=== PATIENT | female | born 1945 | race Caucasian/White ===

== ENCOUNTER 2019-12-02 08:44 | Outpatient (CLI) | payer MEDICARE, OTHER, SELFPAY ==
[2019-12-02 09:02] VITALS: BMI 27.4
[2019-12-02 09:07] VITALS: BP 139/93; PULSE 91; RESP 18; TEMP 35.6; O2SAT 96
--- NOTE | 2019-12-02 10:01 | SUR.OPER ---
PER PHARMACY DID NOT HAVE RECOMMENDED DOSE. EXPLAINED TO PATIENT SHE COULD LEAVE AND COME BACK, PATIENT CHOSE TO LEAVE AND COM BACK TOMORROW.
== END 2019-12-02 08:45 | disposition home or self-care (01) ==
LOC: GILAB 08:47
PROVIDERS: Family Provider Family Medicine; PCP Family Medicine; Visit Provider Student in an Organized Health Care Education/Training Program
DX: H20.13 Chronic iridocyclitis, bilateral (principal)
CPT/HCPCS: A4222; J1745; J7050

== ENCOUNTER 2019-12-03 09:49 | Outpatient (CLI) | payer MEDICARE, OTHER, SELFPAY ==
[2019-12-03 10:04] VITALS: BP 128/76; PULSE 79; RESP 18; TEMP 36.4; O2SAT 95
== END 2019-12-03 09:50 | disposition home or self-care (01) ==
PROVIDERS: Family Provider Family Medicine; PCP Family Medicine; Visit Provider Student in an Organized Health Care Education/Training Program
DX: H20.13 Chronic iridocyclitis, bilateral (principal)
CPT/HCPCS: 96365; 96366; A4222; J1745; J7050

== ENCOUNTER → 2019-12-27 07:50 | Outpatient (BNVA) | payer MEDICARE, OTHER, SELFPAY | PROVIDERS: Family Provider Family Medicine; PCP Family Medicine; Visit Provider Nurse Practitioner | DX: F41.1 Generalized anxiety disorder (principal) | CPT/HCPCS: 99213 ==

== ENCOUNTER → 2019-12-30 08:57 | Day surgery (SDC) | payer MEDICARE, OTHER, SELFPAY ==
[2019-12-30 09:38] VITALS: BP 157/85; PULSE 73; RESP 18; TEMP 36.7; O2SAT 98; BMI 29.2
== END ==
PROVIDERS: Family Provider Family Medicine; PCP Family Medicine; Visit Provider Student in an Organized Health Care Education/Training Program
DX: H20.13 Chronic iridocyclitis, bilateral (principal)
CPT/HCPCS: 96365; 96366; J1745; J7050

== ENCOUNTER 2020-01-27 08:50 | Outpatient (CLI) | payer MEDICARE, OTHER, SELFPAY ==
[2020-01-27 09:00] VITALS: BP 124/81; PULSE 94; RESP 18; TEMP 36.6; O2SAT 95; BMI 27.4
== END 2020-01-27 08:51 | disposition home or self-care (01) ==
PROVIDERS: Family Provider Family Medicine; PCP Family Medicine; Visit Provider Student in an Organized Health Care Education/Training Program
DX: H20.13 Chronic iridocyclitis, bilateral (principal)
CPT/HCPCS: 96365; J1745; J7050

== ENCOUNTER 2020-02-24 08:54 | Outpatient (CLI) | payer MEDICARE, OTHER, SELFPAY ==
[2020-02-24 09:31] VITALS: BP 120/80; PULSE 88; RESP 16; TEMP 36.7; O2SAT 94
[2020-02-24 11:50] VITALS: BP 120/80; PULSE 88; RESP 16; TEMP 36.6; O2SAT 97
== END 2020-02-24 08:55 | disposition home or self-care (01) ==
LOC: RHEOACUTE 08:55
PROVIDERS: Family Provider Family Medicine; PCP Family Medicine; Visit Provider Internal Medicine Rheumatology
DX: H20.13 Chronic iridocyclitis, bilateral (principal)
CPT/HCPCS: 96365; 96366; J1745; J7050

== ENCOUNTER 2020-03-23 10:49 | Outpatient (CLI) | payer MEDICARE, OTHER, SELFPAY ==
[2020-03-23 11:02] VITALS: BP 117/79; PULSE 87; RESP 16; TEMP 36.4; O2SAT 94
[2020-03-23 13:15] VITALS: BP 133/82; PULSE 80; RESP 16; TEMP 36.4
== END 2020-03-23 10:50 | disposition home or self-care (01) ==
LOC: RHEOACUTE 10:50
PROVIDERS: Family Provider Family Medicine; PCP Family Medicine; Visit Provider Internal Medicine Rheumatology
DX: H20.13 Chronic iridocyclitis, bilateral (principal); Z79.899 Other long term (current) drug therapy
CPT/HCPCS: 36415; 85025; 96365; 96366; J1745; J7050

== ENCOUNTER 2020-04-20 09:58 | Outpatient (CLI) | payer MEDICARE, OTHER, SELFPAY ==
[2020-04-20 10:09] VITALS: BP 116/79; PULSE 92; RESP 16; TEMP 36.4; O2SAT 97
[2020-04-20 12:24] VITALS: BP 136/88; PULSE 108; RESP 16; TEMP 36.6; O2SAT 97
== END 2020-04-20 09:59 | disposition home or self-care (01) ==
LOC: RHEOACUTE 09:59
PROVIDERS: Family Provider Family Medicine; PCP Family Medicine; Visit Provider Internal Medicine Rheumatology
DX: H20.13 Chronic iridocyclitis, bilateral (principal)
CPT/HCPCS: 96365; 96366; J1745; J7050

== ENCOUNTER 2020-05-25 08:58 | Outpatient (CLI) | payer MEDICARE, OTHER, SELFPAY ==
[2020-05-25 09:16] VITALS: BP 112/73; PULSE 82; RESP 16; TEMP 36.6; O2SAT 95
[2020-05-25 12:16] VITALS: BP 137/79; PULSE 79; RESP 16; O2SAT 95
== END 2020-05-25 08:59 | disposition home or self-care (01) ==
LOC: RHEOACUTE 09:01
PROVIDERS: Family Provider Family Medicine; PCP Family Medicine; Visit Provider Internal Medicine Rheumatology
DX: H20.13 Chronic iridocyclitis, bilateral (principal); Z79.899 Other long term (current) drug therapy
CPT/HCPCS: 80053; 85025; 85651; 86140; 96365; 96366; J1745; J7050

== ENCOUNTER → 2020-06-06 10:27 | Outpatient (BNVA) | payer MEDICARE, OTHER, SELFPAY | PROVIDERS: Family Provider Family Medicine; PCP Family Medicine; Visit Provider Internal Medicine Rheumatology | DX: H30.93 Unspecified chorioretinal inflammation, bilateral (principal); M19.90 Unspecified osteoarthritis, unspecified site; Z79.899 Other long term (current) drug therapy | CPT/HCPCS: 86431; 99204 ==

== ENCOUNTER 2020-06-07 13:01 | Outpatient (CLI) | payer MEDICARE, OTHER, SELFPAY ==
--- NOTE | 2020-06-07 13:16 | XR_ITS ---
WS: [id number] Chest 2 views, 06/07/2020 Clinical Data: inflammatory arthritis Comparison: PA and lateral chest, 02/04/2017. Findings: No nodules, masses or effusions are seen. The heart is normal. The pulmonary vascularity is not increased. No pneumonia or pneumothorax is seen. The aortic arch shows mild tortuosity. There ar e clips in the right axilla from surgery. XR/XR chest 2V* [id number] Impression: Atherosclerosis.
--- NOTE | 2020-06-07 13:16 | XR_ITS ---
WS: [id number] Right hand, 3 views, 06/07/2020 Clinical Data: inflammatory arthritis Comparison: None. Findings: No fractures or dislocations are seen. The soft tissues are unremarkable. The joint space s are normal XR/XR hand RT min 3V* [id number] Impression: Negative right hand.
--- NOTE | 2020-06-07 13:16 | XR_ITS ---
WS: [id number] Left hand, 3 views, 06/07/2020 Clinical Data: inflammatory arthritis Comparison: None. Findings: No fractures or dislocations are seen. The soft tissues are unremarkable. The joint spaces are normal XR/XR hand LT min 3V* [id number] Impression: Negative left hand.
== END 2020-06-07 13:02 | disposition home or self-care (01) ==
LOC: RADWPI 13:04
PROVIDERS: Family Provider Family Medicine; PCP Family Medicine; Visit Provider Internal Medicine Rheumatology
DX: M19.90 Unspecified osteoarthritis, unspecified site (principal); I70.90 Unspecified atherosclerosis
CPT/HCPCS: 71046; 73130

== ENCOUNTER → 2020-06-19 07:33 | Outpatient (BNVA) | payer MEDICARE, OTHER, SELFPAY | PROVIDERS: Family Provider Family Medicine; PCP Family Medicine; Visit Provider Nurse Practitioner | DX: F41.1 Generalized anxiety disorder (principal) | CPT/HCPCS: 99213 ==

== ENCOUNTER 2020-06-22 10:10 | Outpatient (CLI) | payer MEDICARE, OTHER, SELFPAY ==
[2020-06-22 10:40] VITALS: BP 145/82; PULSE 76; RESP 18; TEMP 36.5; O2SAT 96
[2020-06-22 10:45] VITALS: BMI 28.3
== END 2020-06-22 10:11 | disposition home or self-care (01) ==
LOC: GILAB 10:15
PROVIDERS: PCP Family Medicine; Visit Provider Internal Medicine Rheumatology
DX: H20.13 Chronic iridocyclitis, bilateral (principal)
CPT/HCPCS: 96365; 96366; J1745; J7050

== ENCOUNTER 2020-07-20 10:32 | Outpatient (CLI) | payer MEDICARE, OTHER, SELFPAY ==
[2020-07-20 10:35] VITALS: BP 130/79; PULSE 75; RESP 16; TEMP 36.3; O2SAT 98
[2020-07-20] MEDS: acetaminophen 325 mg Tablet 975 MG PO (10:35)
[2020-07-20] MEDS: diphenhydrAMINE 50 mg/mL SDV 1mL 25 MG IVP (11:15)
[2020-07-20 12:09] VITALS: BMI 28.3
== END 2020-07-20 10:33 | disposition home or self-care (01) ==
LOC: RHEOACUTE 10:33
PROVIDERS: PCP Family Medicine; Visit Provider Internal Medicine Rheumatology
DX: H20.13 Chronic iridocyclitis, bilateral (principal)
CPT/HCPCS: 96365; 96366; 96375; J1200; J1745; J2920; J7050

== ENCOUNTER 2020-08-17 10:26 | Outpatient (CLI) | payer MEDICARE, OTHER, SELFPAY ==
[2020-08-17 11:00] VITALS: BP 136/82; PULSE 84; RESP 16; TEMP 36.1; O2SAT 96
[2020-08-17] MEDS: acetaminophen 325 mg Tablet 975 MG PO (11:05)
[2020-08-17] MEDS: diphenhydrAMINE 50 mg/mL SDV 1mL 25 MG IVP (11:30)
[2020-08-17 13:43] VITALS: BP 128/83; PULSE 87; RESP 16; O2SAT 96
== END 2020-08-17 10:27 | disposition home or self-care (01) ==
LOC: RHEOACUTE 10:27
PROVIDERS: PCP Family Medicine; Visit Provider Internal Medicine Rheumatology
DX: H20.13 Chronic iridocyclitis, bilateral (principal)
CPT/HCPCS: 96365; 96366; 96375; J1200; J1745; J2920; J7050

== ENCOUNTER 2020-08-23 11:38 | Outpatient (CLI) | payer MEDICARE, OTHER, SELFPAY ==
--- NOTE | 2020-08-23 11:45 | MM_ITS ---
WS: [id number] LEFT diagnostic MAMMOGRAM WITH HAIDER DISPLACEMENT VIEWS. CAD PERFORMED. HISTORY: HX OF BREAST CA COMPARISON: None available. LEFT craniocaudal and mediolateral like views are performed. Haider displacement views in CC and MLO projection also performed. Breasts composition: There are scattered areas of fibroglandular density. Asymmetry in the upper outer quadrant of the LEFT breast measures 13 mm and has been stable over mult iple prior years. There are no suspicious calcifications or mass. Implant is slightly collapsed but t here is no extravasation. Similar to prior studies. MM/[place] [id number] IMPRESSION: BI-RADS: 2-Benign FOLLOW-UP: 1 Year Follow-up
== END 2020-08-23 11:39 | disposition home or self-care (01) ==
LOC: RADSHAW 11:41
PROVIDERS: PCP Family Medicine; Visit Provider Family Medicine
DX: Z85.3 Personal history of malignant neoplasm of breast (principal)
CPT/HCPCS: 77065

== ENCOUNTER → 2020-08-29 09:39 | Outpatient (BNVA) | payer MEDICARE, OTHER, SELFPAY | PROVIDERS: Family Provider Family Medicine; PCP Family Medicine; Visit Provider Internal Medicine Rheumatology | DX: Z79.899 Other long term (current) drug therapy (principal); Z11.59 Encounter for screening for other viral diseases; M19.90 Unspecified osteoarthritis, unspecified site | CPT/HCPCS: 36415; 80076; 82565; 85025; 85651; 86140; 86431; 86704; 86803; 86812; 87340 ==

== ENCOUNTER → 2020-09-07 11:15 | Outpatient (BNVA) | payer MEDICARE, OTHER, SELFPAY | PROVIDERS: Family Provider Family Medicine; PCP Family Medicine; Visit Provider Internal Medicine Rheumatology | DX: H30.93 Unspecified chorioretinal inflammation, bilateral (principal); Z79.899 Other long term (current) drug therapy; M79.7 Fibromyalgia; M25.539 Pain in unspecified wrist | CPT/HCPCS: 99214 ==

== ENCOUNTER 2020-09-14 10:02 | Outpatient (CLI) | payer MEDICARE, OTHER, SELFPAY ==
[2020-09-14 10:00] VITALS: BP 106/69; PULSE 78; RESP 16; TEMP 36.7; O2SAT 96
[2020-09-14] MEDS: acetaminophen 325 mg Tablet 975 MG PO (10:38)
[2020-09-14] MEDS: diphenhydrAMINE 50 mg/mL SDV 1mL 25 MG IVP (10:40)
[2020-09-14 11:15] VITALS: BMI 27.6
[2020-09-14 13:05] VITALS: BP 129/83; PULSE 92; RESP 16
== END 2020-09-14 10:03 | disposition home or self-care (01) ==
LOC: RHEOACUTE 10:03
PROVIDERS: Family Provider Family Medicine; PCP Family Medicine; Visit Provider Internal Medicine Rheumatology
DX: H20.13 Chronic iridocyclitis, bilateral (principal)
CPT/HCPCS: 96365; 96366; 96375; J1200; J1745; J2920; J2930; J7050

== ENCOUNTER 2020-09-20 15:51 | Outpatient (CLI) | payer MEDICARE, OTHER, SELFPAY ==
--- NOTE | 2020-09-20 16:15 | XR_ITS ---
WS: [id number] SCREENING DEXA SCAN [email or web address] CLINICAL INFORMATION: osteoporosis screening COMPARISON: FINDINGS: The L1-L4 bone mineral density measures 0.984 g/cm2. This corresponds to a T score score of -1.6 and Z score of -0.1. Left femoral neck bone mineral density measures 0.876 g/cm2. This corresponds to a T score of -1.0 an d Z score of 0.5. Right femoral neck bone mineral density measures 0.934 g/cm2. This corresponds to a T score -0.6of an d Z score of 1.0. Mean femoral neck bone mineral density measures 0.905 g/cm2. This corresponds to a T score of -0.8 an d Z score of 0.8. XR/XR DEXA axial skeleton* [id number] IMPRESSION: Osteopenia Patient's FRAX calculated 10 year probability for major osteoporotic fracture i s 11.2 % and osteoporotic hip fracture is 2.2%.
== END 2020-09-20 15:52 | disposition home or self-care (01) ==
LOC: RADWPI 15:53
PROVIDERS: PCP Family Medicine; Visit Provider Internal Medicine Rheumatology
DX: M81.0 Age-related osteoporosis without current pathological fracture; M85.89 Other specified disorders of bone density and structure, multiple sites
CPT/HCPCS: 77080; 99213

== ENCOUNTER 2020-10-12 09:53 | Outpatient (CLI) | payer MEDICARE, OTHER, SELFPAY ==
[2020-10-12 10:00] VITALS: BP 112/77; PULSE 80; RESP 16; TEMP 36.2; O2SAT 97
[2020-10-12] MEDS: acetaminophen 325 mg Tablet 975 MG PO (10:15)
[2020-10-12] MEDS: diphenhydrAMINE 50 mg/mL SDV 1mL 25 MG IVP (10:40)
[2020-10-12 11:23] VITALS: BMI 27.6
[2020-10-12 13:30] VITALS: BP 109/68; PULSE 84; RESP 16; O2SAT 97
== END 2020-10-12 09:54 | disposition home or self-care (01) ==
LOC: RHEOACUTE 09:54
PROVIDERS: PCP Family Medicine; Visit Provider Internal Medicine Rheumatology
DX: H20.13 Chronic iridocyclitis, bilateral (principal)
CPT/HCPCS: 96365; 96366; 96375; J1200; J1745; J2920; J7050

== ENCOUNTER 2020-11-08 09:53 | Outpatient (CLI) | payer MEDICARE, OTHER, SELFPAY ==
[2020-11-08 10:00] VITALS: BP 137/79; PULSE 88; RESP 16; TEMP 36.2; O2SAT 97
[2020-11-08] MEDS: acetaminophen 325 mg Tablet 975 MG PO (10:20)
[2020-11-08] MEDS: diphenhydrAMINE 50 mg/mL SDV 1mL 25 MG IVP (10:40)
[2020-11-08 12:32] VITALS: BMI 27.6
--- NOTE | 2020-11-08 12:33 | PC.NURSE ---
Unable to draw labs with IV start. PUMP PRESS OPERATOR to RAC x 1 stick. Tolerated well. Pressure drsg applied.
[2020-11-08 13:00] VITALS: BP 121/75; PULSE 92; RESP 16; O2SAT 97
== END 2020-11-08 09:54 | disposition home or self-care (01) ==
LOC: RHEOACUTE 09:54
PROVIDERS: PCP Family Medicine; Visit Provider Internal Medicine Rheumatology
DX: Z79.899 Other long term (current) drug therapy (principal); H20.13 Chronic iridocyclitis, bilateral
CPT/HCPCS: 36415; 80076; 82306; 82565; 85025; 96365; 96366; 96375; J1200; J1745; J2920; J7050

== ENCOUNTER 2020-12-07 12:58 | Outpatient (CLI) | payer MEDICARE, OTHER, SELFPAY ==
[2020-12-07 13:10] VITALS: BP 125/75; PULSE 79; RESP 16; TEMP 36.2; O2SAT 95
[2020-12-07] MEDS: acetaminophen 325 mg Tablet 975 MG PO (13:38)
[2020-12-07] MEDS: diphenhydrAMINE 50 mg/mL SDV 1mL 25 MG IVP (13:50)
[2020-12-07 16:14] VITALS: BP 120/72; PULSE 72; RESP 16; O2SAT 98
== END 2020-12-07 12:59 | disposition home or self-care (01) ==
LOC: RHEOACUTE 12:59
PROVIDERS: PCP Family Medicine; Visit Provider Internal Medicine Rheumatology
DX: H20.13 Chronic iridocyclitis, bilateral (principal)
CPT/HCPCS: 96365; 96366; 96375; J1200; J1745; J2920; J7050

== ENCOUNTER 2020-12-11 09:53 | Outpatient (CLI) | payer MEDICARE, OTHER, SELFPAY ==
--- NOTE | 2020-12-11 10:02 | CT_ITS ---
WS: [id number] CT ABDOMEN TECHNIQUE: Noncontrast CT of the abdomen with coronal and sagittal reformatted images. CLINICAL INFORMATION: ABDOMINAL WALL MASS/ABDOMINAL PAIN COMPARISON: None. DLP: 809.[address] scans at [facility] use at least one of these dose optimization techniques: automat ed exposure control; mA and/or kV adjustment per patient size (includes targeted exams where dose is matched to clinical indication); or iterative reconstruction. FINDINGS: Noncontrast liver is normal. Splenic granulomas. Noncontrast gallbladder is unremarkable. Subsegmenta l atelectasis in the lung bases. Normal GE junction. Adrenal glands are normal. No hydronephrosis. No rmal caliber abdominal aorta. Aortic calcification. Prior ventral abdominal wall hernia repair. No re current hernia. No herniated bowel. Incidental fat-containing umbilical hernia. Grade 1 anterolisthes is L4 on L5. Lumbar curve convex right. CT/CT abdomen wo con [id number] IMPRESSION: 1. Prior ventral abdominal wall hernia repair. No recurrent hernia. No herniat ed bowel. 2. Tiny incidental fat-containing umbilical hernia. 3. Normal caliber abdominal aorta. 4. No hydronephrosis in either kidney. 5. No acute abdominal findings.
[2020-12-11] MEDS: iohexol 300 mg/mL 50 mL Btl PO (10:17)
== END 2020-12-11 09:54 | disposition home or self-care (01) ==
LOC: RADWPI 09:55
PROVIDERS: PCP Family Medicine; Visit Provider Family Medicine
DX: R10.9 Unspecified abdominal pain (principal); R22.2 Localized swelling, mass and lump, trunk; K42.9 Umbilical hernia without obstruction or gangrene
CPT/HCPCS: 74150; Q9967

== ENCOUNTER → 2020-12-19 08:49 | Outpatient (BNVA) | payer MEDICARE, OTHER, SELFPAY | PROVIDERS: PCP Family Medicine; Visit Provider Internal Medicine Rheumatology | DX: H30.93 Unspecified chorioretinal inflammation, bilateral (principal); Z79.899 Other long term (current) drug therapy; M79.7 Fibromyalgia; M25.539 Pain in unspecified wrist | CPT/HCPCS: 99214 ==

== ENCOUNTER 2021-01-04 09:55 | Outpatient (CLI) | payer MEDICARE, OTHER, SELFPAY ==
[2021-01-04 10:45] VITALS: BP 121/73; PULSE 62; RESP 18; TEMP 36.6; O2SAT 95
[2021-01-04] MEDS: acetaminophen 325 mg Tablet 975 MG PO (10:55)
[2021-01-04] MEDS: sodium chloride 0.9% (100 ml) 100 ML 75 ML (10:56)
[2021-01-04] MEDS: diphenhydrAMINE 50 mg/mL SDV 1mL 25 MG IVP (10:58)
[2021-01-04 12:39] VITALS: BP 121/73; PULSE 81; RESP 18; TEMP 36.5; O2SAT 96
== END 2021-01-04 09:56 | disposition home or self-care (01) ==
PROVIDERS: PCP Family Medicine; Visit Provider Internal Medicine Rheumatology
DX: H20.13 Chronic iridocyclitis, bilateral (principal)
CPT/HCPCS: 96365; 96375; J1200; J1745; J2920; J7050

== ENCOUNTER → 2021-03-01 07:33 | Outpatient (BNVA) | payer MEDICARE, OTHER, SELFPAY | PROVIDERS: Family Provider Family Medicine; PCP Family Medicine; Visit Provider Nurse Practitioner | DX: F41.1 Generalized anxiety disorder (principal) | CPT/HCPCS: 99214 ==

== ENCOUNTER → 2021-05-02 13:01 | Outpatient (BNVA) | payer MEDICARE, OTHER, SELFPAY | PROVIDERS: Family Provider Family Medicine; PCP Family Medicine; Visit Provider Internal Medicine Rheumatology | DX: H30.93 Unspecified chorioretinal inflammation, bilateral (principal); M19.90 Unspecified osteoarthritis, unspecified site; M79.7 Fibromyalgia; Z79.899 Other long term (current) drug therapy; M85.80 Other specified disorders of bone density and structure, unspecified site | CPT/HCPCS: 99214 ==

== ENCOUNTER → 2021-08-09 08:49 | Outpatient (BNVA) | payer MEDICARE, OTHER, SELFPAY | PROVIDERS: Family Provider Family Medicine; PCP Family Medicine; Visit Provider Internal Medicine Rheumatology | DX: M19.90 Unspecified osteoarthritis, unspecified site (principal); Z79.899 Other long term (current) drug therapy | CPT/HCPCS: 36415; 80076; 82565; 85025; 86140 ==

== ENCOUNTER → 2021-08-23 09:34 | Outpatient (BNVA) | payer MEDICARE, OTHER, SELFPAY | PROVIDERS: Family Provider Family Medicine; PCP Family Medicine; Visit Provider Internal Medicine Rheumatology | DX: H30.93 Unspecified chorioretinal inflammation, bilateral (principal); M19.90 Unspecified osteoarthritis, unspecified site; M79.7 Fibromyalgia; Z79.899 Other long term (current) drug therapy; M85.80 Other specified disorders of bone density and structure, unspecified site; Z71.89 Other specified counseling | CPT/HCPCS: 99214 ==

== ENCOUNTER → 2021-08-27 07:45 | Outpatient (BNVA) | payer MEDICARE, OTHER, SELFPAY | PROVIDERS: Family Provider Family Medicine; PCP Family Medicine; Visit Provider Nurse Practitioner | DX: F41.1 Generalized anxiety disorder (principal) | CPT/HCPCS: 99214 ==

== ENCOUNTER 2022-01-14 07:27 | Outpatient (CLI) | payer MEDICARE, OTHER, SELFPAY ==
[2022-01-14 07:50] LABS: Basophils % 0.5 %; Eosinophils # 0.1 10^3/uL (0.0-0.8); Eosinophils % 2.2 %; Hematocrit 42.2 % (37.0-47.0); Hemoglobin 13.6 g/dL (11.5-15.3); Lymphocytes # 2.2 10^3/uL (0.8-4.8); Lymphocytes % 37.3 %; Mean Corpuscular HGB Conc 32.2 g/dL (30.0-36.0); Mean Corpuscular Hemoglobin 32.8 pg (28.0-34.0); Mean Corpuscular Volume 101.7 fl (81-99); Mean Platelet Volume 9.8 fL (7.4-10.4); Monocytes # 0.7 10^3/uL (0.2-0.9); Monocytes % 11.5 %; Neutrophils # 2.89 10^3/uL (1.8-7.7); Neutrophils % 48.2 %; Nucleated Red Blood Cells % 0 %; Platelet Count 319 10^3/cmm (130-400); Red Blood Count 4.15 10^6/uL (4.1-5.3); Red Cell Distribution Width 14.4 % (12.1-15.1)
[2022-01-14 08:15] LABS: Alanine Aminotransferase 46 U/L (0-33); Albumin Level 4.3 g/dL (3.5-5.2); Alkaline Phosphatase 91 IU/L (35-105); Aspartate Amino Transferase 40 U/L (0-32); Globulin 3.4 g/dL (1.3-4.6); Total Bilirubin 0.3 mg/dL (0.15-1.2); Total Protein 7.7 g/dL (6.6-8.7)
== END 2022-01-14 07:28 | disposition home or self-care (01) ==
LOC: LAB 07:36
PROVIDERS: PCP Family Medicine; Visit Provider Internal Medicine Rheumatology
DX: M19.90 Unspecified osteoarthritis, unspecified site (principal); Z79.899 Other long term (current) drug therapy
CPT/HCPCS: 36415; 80076; 82565; 85025; 86140

== ENCOUNTER → 2022-02-14 09:42 | Outpatient (BNVA) | payer MEDICARE, OTHER, SELFPAY | PROVIDERS: PCP Family Medicine; Visit Provider Internal Medicine Rheumatology | DX: H30.93 Unspecified chorioretinal inflammation, bilateral (principal); Z79.899 Other long term (current) drug therapy; M19.90 Unspecified osteoarthritis, unspecified site; M79.7 Fibromyalgia; M85.80 Other specified disorders of bone density and structure, unspecified site; Z82.61 Family history of arthritis; Z71.89 Other specified counseling | CPT/HCPCS: 99214 ==

== ENCOUNTER → 2022-02-19 07:47 | Outpatient (BNVA) | payer MEDICARE, OTHER, SELFPAY | PROVIDERS: PCP Family Medicine; Visit Provider Nurse Practitioner | DX: F41.1 Generalized anxiety disorder (principal) | CPT/HCPCS: 99214 ==

== ENCOUNTER 2022-03-06 07:21 | Outpatient (CLI) | payer MEDICARE, OTHER, SELFPAY ==
--- NOTE | 2022-03-06 07:26 | MM_ITS ---
WS: [id number] Diagnostic LEFT DIGITAL MAMMOGRAM WITH CAD, implant displacement views and 3-D imaging. HISTORY: HX OF BREAST CA;RT MAST COMPARISON: 08/23/2020 and 04/07/2019 Technique: CC, MLO and ML views. Implant displacement views. Breast composition: There are scattered areas of fibroglandular density. Focal asymmetry in the uppe r outer quadrant of the LEFT breast has been stable over several years. The implant is intact. MM/[place] [id number] IMPRESSION: BI-RADS: 2-Benign FOLLOW UP: 1 Year Follow-up
== END 2022-03-06 07:22 | disposition home or self-care (01) ==
LOC: RAD 07:24
PROVIDERS: PCP Family Medicine; Visit Provider Family Medicine
DX: Z85.3 Personal history of malignant neoplasm of breast (principal); Z90.11 Acquired absence of right breast and nipple
CPT/HCPCS: 77061

== ENCOUNTER → 2022-04-24 08:22 | Outpatient (BNVA) | payer MEDICARE, OTHER, SELFPAY | PROVIDERS: PCP Family Medicine; Visit Provider Family Medicine | DX: Z51.81 Encounter for therapeutic drug level monitoring (principal); Z79.1 Long term (current) use of non-steroidal anti-inflammatories (NSAID); Z79.899 Other long term (current) drug therapy | CPT/HCPCS: 80053; 82746; 83036; 85025 ==

== ENCOUNTER 2022-05-17 09:18 | Outpatient (CLI) | payer MEDICARE, OTHER, SELFPAY ==
[2022-05-17 09:49] LABS: Basophils % 0.7 %; Eosinophils # 0.1 10^3/uL (0.0-0.8); Eosinophils % 2.3 %; Hematocrit 39.6 % (37.0-47.0); Lymphocytes # 2.3 10^3/uL (0.8-4.8); Lymphocytes % 37.9 %; Mean Corpuscular HGB Conc 32.8 g/dL (30.0-36.0); Mean Corpuscular Hemoglobin 33.1 pg (28.0-34.0); Mean Corpuscular Volume 100.8 fl (81-99); Mean Platelet Volume 10.1 fL (7.4-10.4); Monocytes # 0.8 10^3/uL (0.2-0.9); Monocytes % 12.5 %; Neutrophils # 2.86 10^3/uL (1.8-7.7); Neutrophils % 46.4 %; Nucleated Red Blood Cells % 0 %; Platelet Count 306 10^3/cmm (130-400); Red Blood Count 3.93 10^6/uL (4.1-5.3); Red Cell Distribution Width 13.3 % (12.1-15.1); White Blood Count 6.2 10^3/uL (4.0-10.0)
[2022-05-17 10:08] LABS: Alanine Aminotransferase 34 U/L (0-33); Albumin Level 4.2 g/dL (3.5-5.2); Alkaline Phosphatase 88 IU/L (35-105); Aspartate Amino Transferase 32 U/L (0-32); Globulin 2.8 g/dL (1.3-4.6); Slide Review Slide Review Perform; Total Bilirubin 0.2 mg/dL (0.15-1.2)
== END 2022-05-17 09:19 | disposition home or self-care (01) ==
LOC: LAB 09:22
PROVIDERS: PCP Family Medicine; Visit Provider Internal Medicine Rheumatology
DX: M19.90 Unspecified osteoarthritis, unspecified site (principal); Z79.899 Other long term (current) drug therapy
CPT/HCPCS: 80076; 82565; 85025; 86140

== ENCOUNTER → 2022-06-20 10:52 | Outpatient (BNVA) | payer MEDICARE, OTHER, SELFPAY | PROVIDERS: PCP Family Medicine; Visit Provider Internal Medicine Rheumatology | DX: Z79.899 Other long term (current) drug therapy (principal); M79.7 Fibromyalgia; M19.90 Unspecified osteoarthritis, unspecified site; Z71.89 Other specified counseling; H30.93 Unspecified chorioretinal inflammation, bilateral | CPT/HCPCS: 99214 ==

== ENCOUNTER 2022-06-28 13:49 | Outpatient (CLI) | payer MEDICARE, OTHER, SELFPAY ==
--- NOTE | 2022-06-28 13:53 | XR_ITS ---
WS: [id number] DEXA (DUAL ENERGY X-RAY ABSORPTIOMETRY) Bone mineral density was performed using a [employer] machine. HISTORY: OSTEOPENIA COMPARISON: 09/20/2020 Lumbar spine BMD (L2-L4): 1.032 T score: -1.4 Z score: 0.0 Total hip BMD: Left: 0.869 g/cm2. T score: -1.1 Z score: 0.5 Right: 0.923 g/cm2. T score: -0.7 Z score: 0.9 10 year probability of a major osteoporotic fracture is 11.9%. Compared to the prior study from 09/20/2020. Lumbar spine bone mineral density has decreased by 0.8%. Bilateral hips bone mineral density has decrease by 1.0%. XR/XR DEXA axial skeleton* [id number] IMPRESSION: OSTEOPENIA based upon the WHO classification for females. No significant change in bone mineral density when compared to the prior study.
== END 2022-06-28 13:50 | disposition home or self-care (01) ==
LOC: RAD 13:49
PROVIDERS: PCP Family Medicine; Visit Provider Family Medicine
DX: Z78.0 Asymptomatic menopausal state (principal); M85.80 Other specified disorders of bone density and structure, unspecified site
CPT/HCPCS: 77080

== ENCOUNTER → 2022-09-24 12:05 | Outpatient (BNVA) | payer MEDICARE, OTHER, SELFPAY | PROVIDERS: PCP Family Medicine; Visit Provider Family Medicine | DX: E53.8 Deficiency of other specified B group vitamins (principal); R53.81 Other malaise; R53.83 Other fatigue; Z79.899 Other long term (current) drug therapy; E11.9 Type 2 diabetes mellitus without complications; E55.9 Vitamin D deficiency, unspecified | CPT/HCPCS: 82306; 82607; 83036; 84439; 84443 ==

== ENCOUNTER → 2022-10-15 10:37 | Outpatient (BNVA) | payer MEDICARE, OTHER, SELFPAY | PROVIDERS: PCP Family Medicine; Visit Provider Internal Medicine Rheumatology | DX: H30.93 Unspecified chorioretinal inflammation, bilateral (principal); Z79.899 Other long term (current) drug therapy; M19.90 Unspecified osteoarthritis, unspecified site; M79.7 Fibromyalgia; Z71.89 Other specified counseling; Z82.61 Family history of arthritis; M85.80 Other specified disorders of bone density and structure, unspecified site | CPT/HCPCS: 99214 ==

== ENCOUNTER 2023-01-21 13:58 | Outpatient (CLI) | payer MEDICARE, OTHER, SELFPAY ==
--- NOTE | 2023-01-21 14:16 | XR_ITS ---
WS: [id number] Right shoulder, 3 views, 01/21/2023 Clinical Data: right shoulder pain after a fall at home Comparison: None. Findings: There is a fracture of the distal aspect of the right clavicle which is undisplaced. The right AC megan nt is normal. The right glenohumeral joint shows no abnormalities. There are clips in the right axill a from surgery. The right ribs and right scapula are unchanged. XR/XR shoulder RT min 2V* [id number] Impression: Undisplaced fracture of distal aspect of right clavicle.
== END 2023-01-21 13:59 | disposition home or self-care (01) ==
PROVIDERS: PCP Family Medicine; Visit Provider Clinical Nurse Specialist Adult Health
DX: S42.034A Nondisplaced fracture of lateral end of right clavicle, initial encounter for closed fracture (principal); X58.XXXA Exposure to other specified factors, initial encounter
CPT/HCPCS: 73030

== ENCOUNTER → 2023-01-22 10:57 | Outpatient (BNVA) | payer MEDICARE, OTHER, SELFPAY | PROVIDERS: PCP Family Medicine; Visit Provider Internal Medicine Rheumatology | DX: H30.93 Unspecified chorioretinal inflammation, bilateral (principal); Z79.899 Other long term (current) drug therapy; M19.90 Unspecified osteoarthritis, unspecified site; M79.7 Fibromyalgia; Z71.89 Other specified counseling | CPT/HCPCS: 36415; 80076; 82565; 85025; 86140; 99214 ==

== ENCOUNTER 2023-02-12 08:58 | Outpatient (CLI) | payer MEDICARE, OTHER, SELFPAY ==
--- NOTE | 2023-02-12 09:19 | XRR_ITS ---
PROCEDURE INFORMATION: Exam: XR Right Clavicle, Complete Exam date and time: 02/12/2023 9:21 AM Age: 77 years old Clinical indication: Condition or disease; Other: Clavicular fracture; Patient HX: HX of right breast cancer TECHNIQUE: Imaging protocol: Radiologic exam of the right clavicle. Complete exam. Views: Any number of views. COMPARISON: CR XR shoulder RT min 2V* [id number] 01/21/2023 2:27 PM FINDINGS: Bones/joints: There is a minimally displaced fracture of the distal right clavicle. Displacement is increased since 01/21/2023. The fracture margins are indistinct but remain visible. There is mild widening of the AC joint without elevation of the distal clavicle. The shoulder is unremarkable. Soft tissues: There are surgical clips in the right axilla. Visible soft tissues are unremarkable. XR/[place] [id number] IMPRESSION: 1. Mildly displaced right distal clavicle fracture with increased displacement since 01/21/2023. 2. Mild widening of the right AC joint consistent with grade 2 separation.
== END 2023-02-12 08:59 | disposition home or self-care (01) ==
LOC: RAD 09:02
PROVIDERS: PCP Family Medicine; Visit Provider Family Medicine
DX: S42.031A Displaced fracture of lateral end of right clavicle, initial encounter for closed fracture (principal); X58.XXXA Exposure to other specified factors, initial encounter
CPT/HCPCS: 73000

== ENCOUNTER 2023-03-03 07:57 | Outpatient (CLI) | payer MEDICARE, OTHER, SELFPAY ==
--- NOTE | 2023-03-03 08:04 | XR_ITS ---
WS: [id number] EXAMINATION: [place] [id number] 2 views REASON FOR EXAM: clavicular fracture COMPARISON: 02/12/2023 ORDER DATE: 03/03/2023 8:04 AM HISTORY: clavicular fracture Findings: There is a fracture of the distal aspect of the right clavicle which is undisplaced. There appears to be minimal change compared with the previous study. The right AC joint is normal. The right glenohum eral joint shows no abnormalities. XR/[place] [id number] Impression: Undisplaced fracture of distal aspect of right clavicle.
== END 2023-03-03 07:58 | disposition home or self-care (01) ==
LOC: RAD 08:00
PROVIDERS: PCP Family Medicine; Visit Provider Family Medicine
DX: S42.031A Displaced fracture of lateral end of right clavicle, initial encounter for closed fracture (principal); X58.XXXA Exposure to other specified factors, initial encounter
CPT/HCPCS: 73000

== ENCOUNTER 2023-03-24 07:58 | Outpatient (CLI) | payer MEDICARE, OTHER, SELFPAY ==
--- NOTE | 2023-03-24 08:10 | XR_ITS ---
WS: [id number] [place] [id number] REASON FOR EXAM: Right clavicular fracture FINDINGS: Healed/healing distal most right clavicular fracture with mild cephalic angulation at the fracture si te. Fracture site unchanged compared to 03/03/2023. XR/[place] [id number] IMPRESSION: Stable right clavicular fracture as above.
== END 2023-03-24 07:59 | disposition home or self-care (01) ==
LOC: RAD 08:03
PROVIDERS: PCP Family Medicine; Visit Provider Family Medicine
DX: S42.031A Displaced fracture of lateral end of right clavicle, initial encounter for closed fracture (principal); X58.XXXA Exposure to other specified factors, initial encounter
CPT/HCPCS: 73000

== ENCOUNTER → 2023-05-07 12:46 | Outpatient (BNVA) | payer MEDICARE, OTHER, SELFPAY | PROVIDERS: PCP Family Medicine; Visit Provider Family Medicine | DX: E11.9 Type 2 diabetes mellitus without complications (principal) | CPT/HCPCS: 83036 ==

== ENCOUNTER → 2023-05-19 10:24 | Outpatient (BNVA) | payer MEDICARE, OTHER, SELFPAY | PROVIDERS: PCP Family Medicine; Visit Provider Internal Medicine Rheumatology | DX: Z79.899 Other long term (current) drug therapy (principal); M19.90 Unspecified osteoarthritis, unspecified site; H30.93 Unspecified chorioretinal inflammation, bilateral; Z71.89 Other specified counseling; M79.7 Fibromyalgia | CPT/HCPCS: 36415; 80076; 82565; 85025; 86140; 99214 ==

== ENCOUNTER → 2023-09-10 09:03 | Outpatient (BNVA) | payer MEDICARE, OTHER, SELFPAY | PROVIDERS: PCP Family Medicine; Visit Provider Family Medicine | DX: Z51.81 Encounter for therapeutic drug level monitoring (principal); R73.03 Prediabetes; E55.9 Vitamin D deficiency, unspecified | CPT/HCPCS: 80053; 82306; 83036; 85025 ==

== ENCOUNTER 2025-07-15 09:21 | Outpatient (CLI) | payer MEDICARE, OTHER, SELFPAY ==
--- NOTE | 2025-07-15 09:26 | XRR_ITS ---
PROCEDURE INFORMATION: Exam: XR Chest Exam date and time: 07/15/2025 9:43 AM Age: 79 years old Clinical indication: Cough; Prior surgery; Surgery date: 6+ months; Surgery type: Right breast; HX of breast cancer; Additional info: Chronic cough, crackles in bases TECHNIQUE: Imaging protocol: Radiologic exam of the chest. Views: 2 views. COMPARISON: CR XR chest 2V* [id number] 06/07/2020 1:19 PM FINDINGS: Lungs: Bibasilar streaky opacities. No confluent consolidation. Pleural spaces: No large pleural effusion or appreciable pneumothorax. Heart/Mediastinum: No cardiomegaly. Vasculature: Aortic calcifications. Bones/joints: No acute osseous abnormality. Chronic fracture deformity of the right clavicle. Soft tissues: Surgical clips in the right axilla. XR/XR chest 2V* [id number] IMPRESSION: Bibasilar streaky opacities, likely atelectasis/scarring versus airspace disease.
== END 2025-07-15 09:22 | disposition home or self-care (01) ==
PROVIDERS: PCP Family Medicine; Visit Provider Family Medicine
DX: R05.3 Chronic cough (principal); R93.89 Abnormal findings on diagnostic imaging of other specified body structures; I70.0 Atherosclerosis of aorta; S42.001D Fracture of unspecified part of right clavicle, subsequent encounter for fracture with routine healing; X58.XXXD Exposure to other specified factors, subsequent encounter
CPT/HCPCS: 71046

== ENCOUNTER 2025-07-27 10:46 | Outpatient (CLI) | payer MEDICARE, OTHER, SELFPAY ==
--- NOTE | 2025-07-27 11:00 | MM_ITS ---
WS: [id number] Diagnostic LEFT DIGITAL BREAST MAMMOGRAPHY WITH HAIDER DISPLACEMENT VIEWS. CAD PERFORMED. HISTORY: hx of breast ca COMPARISON: 03/06/2022, 03/23/2020, 04/06/2018 LEFT craniocaudal and mediolateral oblique views are performed with tomosynthesis and SM. Haider displacement views in CC and MLO projection also performed. Breasts composition: There are scattered areas of fibroglandular density. Reidentified is an irregular asymmetry in the upper outer quadrant of the LEFT breast which has been present since at least 2018 with no change. Benign scattered calcifications. Implant is intact. MM/MM diag LT tomosynthesis [id number] IMPRESSION: BI-RADS: 2 - Benign. FOLLOW-UP: 1 Year Follow-up
== END 2025-07-27 10:47 | disposition home or self-care (01) ==
LOC: RAD 10:47
PROVIDERS: PCP Family Medicine; Visit Provider Family Medicine
DX: Z85.3 Personal history of malignant neoplasm of breast (principal); R92.323 Mammographic fibroglandular density, bilateral breasts; Z98.82 Breast implant status; N64.89 Other specified disorders of breast; R92.1 Mammographic calcification found on diagnostic imaging of breast
CPT/HCPCS: 77061; G0279

== ENCOUNTER 2025-10-04 11:19 | Outpatient (CLI) | payer MEDICARE, OTHER, SELFPAY ==
--- NOTE | 2025-10-04 11:28 | XR_ITS ---
WS: [id number] Exam: XR shoulder RT min 2V* [id number] Date/Time of Exam: 10/04/2025 11:50 AM Reason For Exam: Right shoulder pain DLP: Comparison 03/24/2023. 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 Subacromial bone spurring. Soft tissues are unremarkable. Slight DJD of the glenohumeral joint. AC joint DJD surgical clips along the RIGHT axilla. XR/XR shoulder RT min 2V* [id number] IMPRESSION: 1. 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 2. Degenerative changes as noted above. No acute fracture.
== END 2025-10-04 11:20 | disposition home or self-care (01) ==
LOC: RAD 11:20
PROVIDERS: PCP Family Medicine; Visit Provider Family Medicine
DX: M25.511 Pain in right shoulder (principal); X58.XXXD Exposure to other specified factors, subsequent encounter; S42 Fracture of shoulder and upper arm; M25.711 Osteophyte, right shoulder; Z96.89 Presence of other specified functional implants
CPT/HCPCS: 73030